=== PATIENT | male | born 1965 | race Caucasian/White ===

== ENCOUNTER 2016-07-18 13:47 | Emergency (ER) | payer OTHER ==
[~2016-07-18] VITALS: Ht 172.7 cm; Wt 70.2 kg
[~2016-07-18 13:47] MED LIST: ASCORBIC ACID500 M3 PO; ASPIRIN325 MG PO; ASPIRIN81 M2 PO; CYANOCOBALAM1000 MCG PO; CYMBALTA30 MG PO; DURAGESIC12 MCG TD; ENDOCET 5-3251 EACH PO; FOLIC ACID0.8 MG PO; GABAPENTIN300 MG PO; GABAPENTIN600 MG PO; LIPITOR20 MG PO; LISINOPRIL2.5 MG PO; LO-DOSE ASPIRIN81 M1 PO; LORAZEPAM0.5 MG PO; METOCLOPRAMIDE10 MG PO; NEXIUM40 MG PO; NIACIN500 M1 PO; NICODERM CQ1 EAC2 TD; NITROSTAT0.4 MG SL; NOHOMEMEDS; OMEPRAZOLE20 MG PO; ONDANSETRON HCL8 MG PO; OXYCODONE HCL10 MG PO; OXYCODONE HCL20 M1 PO; OXYCODONE HCL30 MG PO; PLAVIX75 MG PO; SIMVASTATIN20 MG PO; TOPROL XL25 MG PO; TOPROL XL6.25 MG PO; TRAMADOL HCL50 MG PO; ULTRAM50 MG PO; VITAMIN B-6100 MG PO; VITAMIN E100 UNIT PO; ZESTRIL,PRINIV2.5 MG PO; ZOFRAN4 MG PO
[2016-07-18 14:12] LABS: MCH 31.2 PG (29.0-34.0); MCHC 35.2 G/DL (30.0-36.0); MCV 88.6 FL (86-99); MEAN PLAT.VOLUME 9.5 uM^3 (9.0-12.4); PLATELET COUNT 195 K/uL (156-360); RBC DIS.WIDTH-CV 12.1 % (11.8-14.6); RBC DIS.WIDTH-SD 39.8 % (39-53); RED BLOOD COUNT 5.19 M/uL (4.00-5.50); WHITE BLOOD COUNT 7.8 K/uL (4.1-10.2)
[2016-07-18 14:22] LABS: CHLORIDE 108 mEq/L (99-109); SODIUM 139 mEq/L (136-147)
[2016-07-18 14:24] LABS: GLUCOSE 111 mg/dL (70-99)
[2016-07-18 14:25] LABS: ANION GAP 9 MEQ/L (2-14)
[2016-07-18 14:26] LABS: TOTAL BILIRUBIN 1.1 mg/dL (0.0-1.0)
[2016-07-18 14:27] LABS: ALKALINE PHOSPHATASE 60 IU/L (3-129)
[2016-07-18 14:28] LABS: GFR ESTIMATE (CALCULATED) > 59 mL/min/
[2016-07-18 14:29] LABS: UREA NITROGEN (BUN) 12 mg/dL (9-23)
[2016-07-18 16:07] LABS: LIPASE 33 U/L (1.0-51.0)
[2016-07-18 17:47] LABS: ADD MIUA? YES; BILIRUBIN NEGATIVE; BLOOD SMALL; COLOR YELLOW ((YELLOW)); GLUCOSE (STRIP) NEGATIVE; KETONES 5; LEUKOCYTES NEGATIVE; NITRITE NEGATIVE; PROTEIN (STRIP) NEGATIVE; SPECIFIC GRAVITY 1.043 (1.000-1.030); UROBILINOGEN 0.2 MG/DL (0.2-1.0)
[2016-07-18 17:50] LABS: BACTERIA RARE /HPF; EPITHELIAL CELLS NONE SEEN /HPF; MUCUS TRACE /LPF; RED BLOOD CELLS 0-5 /HPF (0-5); UCUL ADDED? NO; WHITE BLOOD CELLS 0-5 /HPF (0-5)
[2016-07-18 17:50] LABS: TROP-I INTERPRETATION NEGATIVE; TROPONIN-I 0.01 ng/mL (0.0-0.30)
[2016-07-18 20:43] VITALS: BP 103/75
== END 2016-07-18 20:43 | disposition home or self-care (01) ==
LOC: EME 13:47 → RME 13:47
DX: R10.13 Epigastric pain (principal); E78.5 Hyperlipidemia, unspecified; I10 Essential (primary) hypertension; I25.2 Old myocardial infarction; Z98.61 Coronary angioplasty status; Z85.038 Personal history of other malignant neoplasm of large intestine; Z79.82 Long term (current) use of aspirin; Z87.891 Personal history of nicotine dependence
CPT/HCPCS: 74177; 80053; 81003; 83690; 84484; 85027; 85379; 99281; 99284; J2405; J7030

== ENCOUNTER 2016-09-06 00:43 | Emergency (ER) | payer OTHER ==
[~2016-09-06] VITALS: Ht 172.7 cm; Wt 71.3 kg
[2016-09-06 03:37] VITALS: BP 148/88
== END 2016-09-06 03:38 | disposition home or self-care (01) ==
LOC: EME 00:43
DX: S39.012A Strain of muscle, fascia and tendon of lower back, initial encounter (principal); S46.911A Strain of unspecified muscle, fascia and tendon at shoulder and upper arm level, right arm, initial encounter; S50.11XA Contusion of right forearm, initial encounter; V49.88XA Car occupant (driver) (passenger) injured in other specified transport accidents, initial encounter; I10 Essential (primary) hypertension; E78.00 Pure hypercholesterolemia, unspecified; F17.200 Nicotine dependence, unspecified, uncomplicated
CPT/HCPCS: 72070; 72100; 73090; 99281; 99283

== ENCOUNTER 2016-12-08 13:50 | Observation (INO) | payer OTHER ==
[~2016-12-08] VITALS: Ht 175.3 cm; Wt 72.2 kg
[2016-12-08 14:36] LABS: HEMATOCRIT 47.6 % (38.0-50.0); MCH 31.2 PG (29.0-34.0); MCHC 34.9 G/DL (30.0-36.0); MCV 89.5 FL (86-99); MEAN PLAT.VOLUME 9.8 uM^3 (9.0-12.4); PLATELET COUNT 220 K/uL (156-360); RBC DIS.WIDTH-CV 12.3 % (11.8-14.6); RBC DIS.WIDTH-SD 40.6 % (39-53); RED BLOOD COUNT 5.32 M/uL (4.00-5.50); WHITE BLOOD COUNT 8.5 K/uL (4.1-10.2)
[2016-12-08 14:46] LABS: CHLORIDE 109 mEq/L (99-109); POTASSIUM 3.8 mEq/L (3.7-5.4); SODIUM 140 mEq/L (136-147)
[2016-12-08 14:48] LABS: GLUCOSE 100 mg/dL (70-99)
[2016-12-08 14:49] LABS: ANION GAP 9 MEQ/L (2-14)
[2016-12-08 14:52] LABS: GFR ESTIMATE (CALCULATED) > 59 mL/min/; UREA NITROGEN (BUN) 9 mg/dL (9-23)
[2016-12-08 14:57] LABS: TROP-I INTERPRETATION NEGATIVE; TROPONIN-I < 0.01 ng/mL (0.0-0.30)
[2016-12-08 15:31] LABS: INTER. NORMALIZED RATIO 1.1; PROTHROMBIN TIME 11.6 SEC (10.2-12.9)
[2016-12-08] MEDS ORDERED: DULOXETINE HCL60 MG PO (19:06)
[2016-12-08] MEDS ORDERED: GABAPENTIN800 MG PO (19:07)
[2016-12-08 19:09] LABS: TOTAL BILIRUBIN 1.5 mg/dL (0.0-1.0)
[2016-12-08 19:10] LABS: ALKALINE PHOSPHATASE 71 IU/L (3-129)
[2016-12-08 19:12] LABS: DIRECT BILIRUBIN 0.5 mg/dL (0.0-0.3)
[2016-12-08 19:13] LABS: LIPASE 36 U/L (1.0-51.0)
[2016-12-08 21:19] VITALS: BP 122/77
== END 2016-12-08 21:18 | disposition left against medical advice (07) ==
LOC: EME 13:50 → EDOF 20:32 → ENRESERV 20:33 → EDOF 21:18
PROVIDERS: Emergency Medicine
DX: R07.9 Chest pain, unspecified (principal); I25.2 Old myocardial infarction; Z85.048 Personal history of other malignant neoplasm of rectum, rectosigmoid junction, and anus; I21.9 Acute myocardial infarction, unspecified; Z95.5 Presence of coronary angioplasty implant and graft; F17.200 Nicotine dependence, unspecified, uncomplicated; Z88.5 Allergy status to narcotic agent; Z88.6 Allergy status to analgesic agent; Z91.040 Latex allergy status
CPT/HCPCS: 71020; 74177; 80048; 80076; 83690; 84484; 85027; 85610; 85730; 93005; 99281; 99284; G0378; J2270; J2405; J7030

== ENCOUNTER 2017-06-27 07:58 | Observation (INO) | payer OTHER ==
[~2017-06-27] VITALS: Ht 172.7 cm; Wt 71.7 kg
[~2017-06-27 07:58] MED LIST changes: +DULOXETINE HCL60 MG PO; +GABAPENTIN800 MG PO
[2017-06-27 08:39] LABS: BASOPHIL (%) 0.3 % (0-1); EOSINOPHIL (%) 0.8 % (0-5); EOSINOPHIL COUNT 0.1 K/uL (0-0.3); HEMATOCRIT 46.7 % (38.0-50.0); HEMOGLOBIN 16.6 G/DL (12.5-16.6); IMMATURE GRANULOCYTE (%) 0.3 % (0.0-0.7); LYMPHOCYTE (%) 11.2 % (15-42); LYMPHOCYTE COUNT 0.7 K/uL (1.0-2.8); MCH 31.6 PG (29.0-34.0); MCHC 35.5 G/DL (30.0-36.0); MONOCYTE COUNT 0.4 K/uL (0-0.8); NEUTROPHIL (%) 80.4 % (45-76); PLATELET COUNT 172 K/uL (156-360); RBC DIS.WIDTH-CV 12.2 % (11.8-14.6); RBC DIS.WIDTH-SD 39.9 % (39-53); RED BLOOD COUNT 5.25 M/uL (4.00-5.50); WHITE BLOOD COUNT 6.3 K/uL (4.1-10.2)
[2017-06-27 08:50] LABS: ALBUMIN 4.1 g/dL (3.2-4.8); CHLORIDE 110 mEq/L (99-109); MAGNESIUM 1.9 mg/dL (1.3-2.7); POTASSIUM 4.3 mEq/L (3.7-5.4); SODIUM 142 mEq/L (136-147)
[2017-06-27 08:52] LABS: GLUCOSE 110 mg/dL (70-99); TOTAL PROTEIN 6.7 g/dL (6.4-8.3)
[2017-06-27 08:54] LABS: TOTAL BILIRUBIN 1.2 mg/dL (0.0-1.0)
[2017-06-27 08:55] LABS: ALKALINE PHOSPHATASE 74 IU/L (3-129)
[2017-06-27 08:56] LABS: CREATININE 0.9 mg/dL (0.6-1.3); GFR ESTIMATE (CALCULATED) > 59 mL/min/ (58.99-99999)
[2017-06-27 08:57] LABS: AST (GOT) 18 IU/L (2-34); UREA NITROGEN (BUN) 10 mg/dL (9-23)
[2017-06-27 08:59] LABS: ALT (GPT) 15 IU/L (3-49)
[2017-06-27 09:04] LABS: TROP-I INTERPRETATION NEGATIVE; TROPONIN-I < 0.01 ng/mL (0.0-0.30)
[2017-06-27] MEDS ORDERED: CYMBALTA60 MG PO (10:47)
[2017-06-27] MEDS ORDERED: NEURONTIN800 MG PO (10:48)
[2017-06-27 11:58] VITALS: BP 131/81
[2017-06-27 12:34] LABS: HDL CHOLESTEROL 40 MG/DL (Desirable>=40); LDL CHOLESTEROL 74 mg/dL (Desirable<100); NON-HDL CHOLESTEROL 88 mg/dL (Desirable<160); TOTAL CHOLESTEROL 128 mg/dL (Desirable<200); TRIGLYCERIDES 68 MG/DL (Normal: <150)
[2017-06-27 14:24] LABS: TROP-I INTERPRETATION NEGATIVE; TROPONIN-I 0.02 ng/mL (0.0-0.30)
[2017-06-27 16:30] VITALS: BP 166/73
[2017-06-27 18:20] VITALS: BP 128/78
[2017-06-27 20:47] LABS: TROP-I INTERPRETATION NEGATIVE; TROPONIN-I < 0.01 ng/mL (0.0-0.30)
[2017-06-27 23:44] VITALS: BP 128/78
[2017-06-28 03:26] VITALS: BP 156/82
[2017-06-28 05:59] LABS: ALBUMIN 3.8 G/DL (3.2-4.8); ALKALINE PHOSPHATASE 56 IU/L (3-129); ALT (GPT) 9 IU/L (3-49); AST (GOT) 13 IU/L (2-34); CHLORIDE 109 MEQ/L (99-109); GFR ESTIMATE (CALCULATED) > 59 mL/min/ (58.99-99999); GLUCOSE 105 mg/dL (70-99); POTASSIUM 3.8 MEQ/L (3.7-5.4); SODIUM 141 MEQ/L (136-147); TOTAL BILIRUBIN 1.1 MG/DL (0.0-1.0); TOTAL PROTEIN 5.9 G/DL (6.4-8.3); UREA NITROGEN (BUN) 10 mg/dL (9-23)
[2017-06-28 07:25] VITALS: BP 135/79
[2017-06-28] MEDS ORDERED: IMDUR30 MG PO (10:28)
[2017-06-28] MEDS ORDERED: MIRALAX17 GM PO (10:29)
[2017-06-28 12:07] VITALS: BP 131/78
== END 2017-06-28 12:55 | disposition home or self-care (01) ==
LOC: EME 07:58 → EDOF 11:00 → 4SOUTH 11:00 → ENRESERV 11:03 → 4SOUTH 11:55 → ENPENDDIS 06-28 12:19 → 4SOUTH 06-28 12:55
PROVIDERS: Emergency Medicine; Hospitalist
DX: R07.9 Chest pain, unspecified (principal); E78.5 Hyperlipidemia, unspecified; R00.1 Bradycardia, unspecified; I10 Essential (primary) hypertension; Z85.048 Personal history of other malignant neoplasm of rectum, rectosigmoid junction, and anus; I25.10 Atherosclerotic heart disease of native coronary artery without angina pectoris; Z79.82 Long term (current) use of aspirin; Z95.5 Presence of coronary angioplasty implant and graft; E86.0 Dehydration; R11.0 Nausea; G62.9 Polyneuropathy, unspecified; I25.2 Old myocardial infarction; F41.9 Anxiety disorder, unspecified; F17.200 Nicotine dependence, unspecified, uncomplicated; Z92.21 Personal history of antineoplastic chemotherapy; Z92.3 Personal history of irradiation; K59.00 Constipation, unspecified; N40.0 Benign prostatic hyperplasia without lower urinary tract symptoms
CPT/HCPCS: 71045; 71275; 74174; 80048; 80053; 80061; 83735; 83880; 84484; 85025; 85027; 93005; G0378; J1650; J2405; J3010; S0028